=== PATIENT | male | born 1985 | race Caucasian/White ===

== ENCOUNTER 2021-09-12 16:14 | Outpatient (CLI) | payer BC, SELFPAY ==
--- NOTE | 2021-09-12 16:30 | XRR_ITS ---
PROCEDURE INFORMATION: Exam: XR Right Knee Exam date and time: 09/12/2021 4:31 PM Age: 36 years old Clinical indication: Pain; Knee; Bilateral; Additional info: Bilateral knee joint pain greater than 3 months TECHNIQUE: Imaging protocol: Radiologic exam of the Right knee. Views: 3 views. COMPARISON: No relevant prior studies available. FINDINGS: Bones/joints: The medial joint space is well maintained. The lateral joint space is well maintained. No fracture identified. Soft tissues: No knee joint effusion is present. XR/XR knee RT 3V* [id number] IMPRESSION: 1. No evidence of acute fracture or dislocation. 2. No significant degenerative changes identified.
--- NOTE | 2021-09-12 16:30 | XRR_ITS ---
PROCEDURE INFORMATION: Exam: XR Left Knee Exam date and time: 09/12/2021 4:31 PM Age: 36 years old Clinical indication: Pain; Knee; Bilateral; Additional info: Bilateral knee joint pain greater than 3 months TECHNIQUE: Imaging protocol: Radiologic exam of the Left knee. Views: 3 views. COMPARISON: No relevant prior studies available. FINDINGS: Bones/joints: The medial joint space is well maintained. The lateral joint space is well maintained. No fracture identified. Soft tissues: No knee joint effusion is present. XR/XR knee LT 3V* [id number] IMPRESSION: 1. No evidence of acute fracture or dislocation. 2. No significant degenerative changes identified.
== END 2021-09-12 16:15 | disposition home or self-care (01) ==
LOC: RAD 16:15
PROVIDERS: PCP Family Medicine; Visit Provider Family Medicine
DX: M25.562 Pain in left knee (principal); M25.561 Pain in right knee
CPT/HCPCS: 73562

== ENCOUNTER 2022-02-25 09:00 | Outpatient (CLI) | payer BC, SELFPAY ==
[2022-02-25 10:06] LABS: Basophils % 0.4 %; Eosinophils # 0.1 10^3/uL (0.0-0.8); Eosinophils % 1.2 %; Hematocrit 46.8 % (37.0-47.0); Hemoglobin 16.1 g/dL (11.5-15.3); Lymphocytes # 1.9 10^3/uL (0.8-4.8); Lymphocytes % 27.6 %; Mean Corpuscular HGB Conc 34.4 g/dL (30.0-36.0); Mean Corpuscular Hemoglobin 32.1 pg (28.0-34.0); Mean Corpuscular Volume 93.4 fl (81-99); Mean Platelet Volume 10.3 fL (7.4-10.4); Monocytes # 0.6 10^3/uL (0.2-0.9); Neutrophils # 4.14 10^3/uL (1.8-7.7); Neutrophils % 61.4 %; Nucleated Red Blood Cells % 0 %; Platelet Count 268 10^3/cmm (130-400); Red Blood Count 5.01 10^6/uL (4.1-5.3); Red Cell Distribution Width 11.9 % (12.1-15.1); White Blood Count 6.8 10^3/uL (4.0-10.0)
[2022-02-25 11:45] LABS: Alanine Aminotransferase 32 U/L (0-33); Albumin Level 5.1 g/dL (3.5-5.2); Alkaline Phosphatase 59 U/L (35-105); Anion Gap 14.5 (5-19); Aspartate Amino Transferase 21 U/L (0-32); Blood Urea Nitrogen 19 mg/dL (6-20); Calcium 9.7 mg/dL (8.5-10.5); Carbon Dioxide 31 mmol/L (22-29); Chloride 92 mmol/L (98-107); Chol HDL Ratio 5.34 mg/dL (0.0-4.40); Cholesterol 235 mg/dL (0-200); Globulin 2.4 g/dL (1.3-4.6); Glomerular Filtration Rate 139.6 mL/min (90-130); Glucose 90 mg/dL (65-115); HDL Cholesterol 44 mg/dL (60-100); LDL Cholesterol Calculated 162 mg/dL (50-129); LDL HDL Ratio 3.68 RATIO (0.00-3.22); Osmolality Calculated 280 mOsm/kg (285-295); Potassium 3.5 mmol/L (3.5-5.1); Sodium 134 mmol/L (136-145); Total Bilirubin 0.4 mg/dL (0.15-1.2); Total Protein 7.5 g/dL (6.6-8.7); Triglycerides 147 mg/dL (0-150)
== END 2022-02-25 09:01 | disposition home or self-care (01) ==
PROVIDERS: PCP Family Medicine; Visit Provider Internal Medicine
DX: Z79.899 Other long term (current) drug therapy (principal); Z78.9 Other specified health status; Z79.890 Hormone replacement therapy
CPT/HCPCS: 36415; 80053; 80061; 84403; 85025